=== PATIENT | female | born 1955 | race Caucasian/White ===

== ENCOUNTER 2024-12-13 02:34 | Emergency (ER) | payer MEDICARE, MEDICAID ==
[~2024-12-13] VITALS: Ht 154.9 cm; Wt 64.0 kg
[2024-12-13 02:42] VITALS: TEMP 36.9; O2SAT 98
[2024-12-13] MEDS: LIDOCAINE HCL 1% 20ML VIAL INFIL ONE (04:00)
[2024-12-13] MEDS: TETANUS, DIPHTHERIA, PERTUSSIS VAC/PF 0.5ML (>10YR OLD) IM ONE (04:01)
[2024-12-13] MEDS ORDERED: CEPH500C2 MT (04:52)
[2024-12-13] MEDS ORDERED: NAPR-1176 MT (04:52)
[2024-12-13 06:12] VITALS: BP 171/84; PULSE 58; RESP 16; O2SAT 100
== END 2024-12-13 06:12 | disposition home or self-care (01) ==
LOC: ER 02:34
DX: S62.609A Fracture of unspecified phalanx of unspecified finger, initial encounter for closed fracture (principal); S61.212A Laceration without foreign body of right middle finger without damage to nail, initial encounter; S61.210A Laceration without foreign body of right index finger without damage to nail, initial encounter; K29.70 Gastritis, unspecified, without bleeding; Z79.1 Long term (current) use of non-steroidal anti-inflammatories (NSAID); W23.2XXA Caught, crushed, jammed or pinched between a moving and stationary object, initial encounter; Y93.89 Activity, other specified; Y92.89 Other specified places as the place of occurrence of the external cause; Y99.8 Other external cause status
CPT/HCPCS: 99283; 73130; 90715; 12002; 90471; J2003

== ENCOUNTER 2024-12-21 10:49 | Emergency (ER) | payer MEDICARE, MEDICAID ==
[~2024-12-21] VITALS: Ht 160 cm; Wt 91.0 kg
[~2024-12-21 10:49] MED LIST: CEPH500C2 MT; NAPR-1176 MT
[2024-12-21 10:50] VITALS: O2SAT 99
[2024-12-21 11:07] VITALS: BP 133/60; PULSE 60; RESP 16; TEMP 37.1; O2SAT 100
[2024-12-21] MEDS ORDERED: BO1 TP (13:52)
[2024-12-21] MEDS: BACITRACIN ZINC OINT UDPKT TOP ONE (14:17)
== END 2024-12-21 14:18 | disposition home or self-care (01) ==
LOC: ER 11:12
DX: S61.212D Laceration without foreign body of right middle finger without damage to nail, subsequent encounter (principal); S61.210D Laceration without foreign body of right index finger without damage to nail, subsequent encounter; Z79.1 Long term (current) use of non-steroidal anti-inflammatories (NSAID); X58.XXXD Exposure to other specified factors, subsequent encounter
CPT/HCPCS: 99282

== ENCOUNTER 2024-12-26 10:43 | Emergency (ER) | payer MEDICARE, MEDICAID ==
[~2024-12-26] VITALS: Ht 162.6 cm; Wt 84.0 kg
[~2024-12-26 10:43] MED LIST changes: +BO1 TP
[2024-12-26 10:45] VITALS: O2SAT 100
[2024-12-26 12:13] VITALS: BP 142/62; PULSE 75; RESP 18; TEMP 37.1; O2SAT 100
== END 2024-12-26 12:15 | disposition home or self-care (01) ==
LOC: ER 10:43
DX: S62.600D Fracture of unspecified phalanx of right index finger, subsequent encounter for fracture with routine healing (principal); Z79.1 Long term (current) use of non-steroidal anti-inflammatories (NSAID); W23.2XXD Caught, crushed, jammed or pinched between a moving and stationary object, subsequent encounter
CPT/HCPCS: 99282; A6449